=== PATIENT | male | born 1965 | race American Indian/Alaskan Native ===

== ENCOUNTER 2017-09-09 09:21 | Emergency (ER) | payer MEDICAID, OTHER ==
[2017-09-09 11:12] LABS: Basophils % (Auto) 0.5 % (0.0-1.8); Eosinophils # (Auto) 0.1 K/mm3 (0.0-0.4); Eosinophils % (Auto) 1.5 % (0.0-4.3); Hematocrit 44.8 % (35.5-45.6); Lymphocytes # (Auto) 1.4 K/mm3 (1.2-5.4); Lymphocytes % (Auto) 26.9 % (13.4-35.0); Mean Corpuscular HGB Conc 34 % (32-34); Mean Corpuscular Hemoglobin 30 pg (28-32); Mean Corpuscular Volume 88 fl (84-94); Monocytes # (Auto) 0.6 K/mm3 (0.0-0.8); Monocytes % (Auto) 12.3 % (0.0-7.3); Platelet Count 195 K/mm3 (140-440); Red Blood Count 5.07 M/mm3 (3.65-5.03); Red Cell Distribution Width 14.1 % (13.2-15.2)
[2017-09-09 11:35] LABS: Albumin 3.7 g/dL (3.9-5); BUN/Creatinine Ratio 18; Blood Urea Nitrogen 14 mg/dL (9-20); Calcium 9.3 mg/dL (8.4-10.2); Hemolysis Index 158
[2017-09-09 11:45] LABS: Alanine Aminotransferase 12 units/L (7-56)
--- NOTE | 2017-09-09 20:19 | Emergency Department Report ---
HPI - General Chief Complaint: Abdominal Pain Time Seen by Provider: 09/09/17 13:18 - HPI HPI: 51-year-old -[place] male who lives in the longterm presents today with a mucousy stool 1 today. Patient is accompanied by caregiver who provides the history. Caregiver states this morning upon cleaning patient he had a mucousy stool mixed with bright red blood times one. This happened at 7 AM. Patient did not have any other episodes. Caregiver stated patient does have a history of loose stools about once or twice daily. But this is the first time he noticed some blood in it. ED Past Medical Hx - Past Medical History Previous Medical History?: Yes Hx Hypertension: No Hx Seizures: Yes Additional medical history: Mentally challenged-MR - Social History Smoking Status: Never Smoker - Medications Home Medications: Home Medications Medication Instructions Recorded Confirmed Last Taken Type Cephalexin [Keflex] 500 mg PO Q6H #28 capsule 05/22/14 Unknown Rx HYDROcodone/APAP 10-325 [[place] 1 each PO Q6HR PRN #12 tablet 05/22/14 Unknown Rx 10-325 mg TAB] Mupirocin [Bactroban 2% Oint] 1 applic TP BID #15 gm 05/22/14 Unknown Rx Cephalexin [Keflex] 500 mg PO Q8HR #30 cap 01/23/15 Unknown Rx Mupirocin [Bactroban 2% OINT] 1 applic TP BID #15 gm 01/23/15 Unknown Rx Hydrocortisone [Anusol-Hc] 30 gm RC ACHS #15 cream..g. 09/09/17 Unknown Rx Sulfamethoxazole/Trimethoprim 1 each PO BID #14 tablet 09/09/17 Unknown Rx [Bactrim DS TAB] ED Review of Systems ROS: Stated complaint: BLOOD IN URINE Other details as noted in HPI Comment: All other systems reviewed and negative Gastrointestinal: hematochezia Genitourinary: denies: urgency, dysuria Musculoskeletal: denies: back pain Physical Exam - Physical Exam Vital Signs: Vital Signs 09/09/17 10:31 Temperature 97.6 F Pulse Rate 82 Respiratory 16 Rate Blood Pressure 105/73 O2 Sat by Pulse 100 Oximetry Physical Exam: Gen. alert and oriented 3 in no distress Head atraumatic normocephalic Eyes PERR LA EOMI Chest regular rate and rhythm normal S1-S2 lungs clear bilaterally Abdomen soft nondistended Back no point tenderness. Neuro no focal deficit. Psych normal mood. Rectal: Small external hemorrhoids nonhemorrhagic ED Course Vital Signs 09/09/17 10:31 Temperature 97.6 F Pulse Rate 82 Respiratory 16 Rate Blood Pressure 105/73 O2 Sat by Pulse 100 Oximetry ED Medical Decision Making - Lab Data Result diagrams: 09/09/17 10:49 09/09/17 10:49 Critical care attestation.: If time is entered above; I have spent that time in minutes in the direct care of this critically ill patient, excluding procedure time. ED Disposition Clinical Impression: Proctitis, External hemorrhoids Disposition: DC- TO HOME OR SELFCARE Is pt being admited?: No Does the pt Need Aspirin: No Condition: Stable Instructions: Proctitis (ED), Rectal Bleeding (ED), Hemorrhoids (ED) Prescriptions: Hydrocortisone [Anusol-Hc] 30 gm RC ACHS #15 cream..g. Sulfamethoxazole/Trimethoprim [Bactrim DS TAB] 1 each PO BID #14 tablet Referrals: PRIMARY CARE, [Primary Care Provider] - 3-5 Days
[2017-09-09 20:34] VITALS: BP 124/84
== END 2017-09-09 20:59 | disposition home or self-care (01) ==
LOC: ED 09:21
DX: K62.89 Other specified diseases of anus and rectum (principal)
CPT/HCPCS: 36415; 80053; 85025; 99283

== ENCOUNTER 2017-11-17 09:27 | Day surgery (SDC) | payer MEDICAID ==
[~2017-11-17 09:27] MED LIST: NACL 0.9% 1000 ML 1,000 ML IV SCH
[2017-11-17] MEDS ORDERED: ePHEDrine SULFATE ONE (10:51)
--- NOTE | 2017-11-17 11:13 | Anesthesia Day of Surgery ---
Anesthesia Day of Surgery - Day of Surgery Patient Examined: Yes Patient H&P Reviewed: Yes Patient is NPO: Yes Beta Blockers: No
--- NOTE | 2017-11-17 11:14 | Anesthesia Consultation ---
Anesthesia Consult and Med Hx - Airway Anesthetic Teeth Evaluation: Good ROM Head & Neck: Adequate Mental/Hyoid Distance: Adequate Mallampati Class: Class III Intubation Access Assessment: Possibly Difficult - Pulmonary Exam CTA: Yes - Cardiac Exam Cardiac Exam: No Murmur - Pre-Operative Health Status ASA Pre-Surgery Classification: ASA2 Proposed Anesthetic Plan: MAC - Pulmonary Hx Smoking: No Hx Asthma: No Hx Respiratory Symptoms: No SOB: No COPD: No Home Oxygen Therapy: No Hx Pneumonia: No Hx Sleep Apnea: No - Cardiovascular System Hx Hypertension: No Hx Coronary Artery Disease: No Hx Heart Attack/AMI: No Hx Angina: No Hx Percutaneous Transluminal Coronary Angioplasty (PTCA): No Hx Cardia Arrhythmia: No Hx Pacemaker: No Hx Internal Defibrillator: No Hx Valvular Heart Disease: No Hx Heart Murmur: No Hx Peripheral Vascular Disease: No - Central Nervous System Hx Neuromuscular Disorder: No Hx Seizures: Yes CVA: No Hx Psychiatric Problems: No - Gastrointestinal Hx Ulcer: No Hx Gastroesophageal Reflux Disease: No - Endocrine Hx Renal Disease: No Hx End Stage Renal Disease: No Hx Cirrhosis: No Hx Liver Disease: No Hx Insulin Dependent Diabetes: No Hx Non-Insulin Dependent Diabetes: No Hx Thyroid Disease: No Hx Hypothyroidism: No Hx Hyperthyroidism: No - Other Systems Hx Alcohol Use: No Hx Substance Use: No Hx Cancer: No Hx Obesity: No
[2017-11-17] MEDS ORDERED: DIPRIVAN 10 MG/ML IV ONE ×2 (11:20→11:54)
[2017-11-17] MEDS ORDERED: XYLOCAINE MPF 2% ONE (12:00)
--- NOTE | 2017-11-17 12:13 | Post Operative Note ---
Date of procedure: 11/17/17 Pre-op diagnosis: hematochezia Post-op diagnosis: same (internal hemorrhoids, colon polyp removed) Findings: 1. ~1 cm colon polyp removed with hot snare polypectomy 2. Internal hemorrhoids Procedure: Colonoscopy with snare polypectomy Anesthesia: MAC Surgeon: MARLON MCCRAY Estimated blood loss: minimal Pathology: list (descending colon polyp) Specimen disposition: to lab Condition: stable Disposition: same day
--- NOTE | 2017-11-17 12:16 | Operative Report ---
Operative Report Operative Report: Colonoscopy Procedure Note with Snare Polypectomy Date of procedure: 11/17/2017 Endoscopist: Mele Pepe Pre-op diagnosis: hematochezia Post-op diagnosis: internal hemorrhoids, colon polyp removed Anesthesia: MAC Complications: No immediate complications Estimated blood loss: minimal Procedure: After consent was obtained, the patient was placed in the left lateral decubitus position. The fujinon colonoscope was inserted into the patient's rectum under direct vision, and advanced to the cecum without difficulty. The patient tolerated the procedure well. The views of the mucosa were fair. The quality of prep was fair. The patient's vital signs were monitored continuously throughout the procedure. Findings: There was an ~10-12 mm sessile polyp in the descending colon. The polyp was removed and retrieved with hot snare polypectomy. Internal hemorrhoids were visualized on retro-flexion view. Impression: 1. Colon polyp removed as above 2. Internal hemorrhoids Recommendations: -follow-up pathology -No Nsaid's for 5-7 days -bowel regimen daily to avoid constipation/straining -repeat colonoscopy in 3 years for surveillance
[2017-11-17 13:04] VITALS: BP 118/78
== END 2017-11-17 09:28 | disposition home or self-care (01) ==
LOC: GIO 09:27
PROVIDERS: ATTEND Internal Medicine Gastroenterology
DX: K92.1 Melena (principal); K64.8 Other hemorrhoids; K62.89 Other specified diseases of anus and rectum; K59.00 Constipation, unspecified; F41.9 Anxiety disorder, unspecified; F32.9 Major depressive disorder, single episode, unspecified
CPT/HCPCS: 45385; 88305; J2704

== ENCOUNTER 2018-07-03 09:04 | Outpatient (CLI) | payer MEDICAID ==
--- NOTE | 2018-07-03 10:49 | Fluoroscopy Report ---
MODIFIED BARIUM SWALLOW INDICATION: Oropharyngeal dysphagia, GERD. COMPARISON: None similar. IMAGES/CINE CLIPS: 1 FINDINGS: Fluoroscopy with video provided by radiologist for speech therapist to assess the swallowing mechanism. Food items of various consistencies given. No penetration or aspiration, though transient regurgitation noted. Few missing teeth and small radiopaque dental materials seen. Mild cervical spondylosis. IMPRESSION: Successful modified barium swallow. Please refer to detailed report from speech pathologist. Thank you for the opportunity to participate in this patient's care.
== END 2018-07-03 09:05 | disposition home or self-care (01) ==
LOC: PT 09:04
PROVIDERS: ATTEND Internal Medicine Gastroenterology
DX: R13.12 Dysphagia, oropharyngeal phase (principal); K21.9 Gastro-esophageal reflux disease without esophagitis
CPT/HCPCS: 74230